=== PATIENT | female | born 1975 | race Caucasian/White ===

== ENCOUNTER 2019-01-11 14:02 | Emergency (ER) | payer MEDICAID ==
[2019-01-11] MEDS: SOD CHLORIDE 0.9% 1,000 ML IV (15:40)
[2019-01-11] MEDS: KETOROLAC 15 MG INJ IV (15:41)
[2019-01-11] MEDS: METOCLOPRAMIDE 10 MG INJ IV (15:41)
[2019-01-11] MEDS: DIPHENHYDRAMINE 50 MG INJ IV (15:41)
== END 2019-01-11 16:46 | disposition home or self-care (01) ==
LOC: E/R 14:02
DX: G51.0 Bell's palsy (principal); R51 Headache
CPT/HCPCS: 96374; 96375; 99284-25